=== PATIENT | male | born 1930 | race Caucasian/White ===

== ENCOUNTER 2016-10-29 12:56 | Inpatient (IN) | payer OTHER ==
[~2016-10-29] VITALS: Ht 165.1 cm; Wt 71.3 kg
[~2016-10-29 12:56] MED LIST: ACTIGALL300 MG PO; ASPIR 8181 MG PO; CAR60 PO; CARAFATE1 GM PO; CIPRO500 MG PO; CIPROFLOXACIN500 MG PO; COL250 PO; COR200 PO; COUMADIN3 MG PO; FEROSUL325 MG PO; FLO4 PO; GEMFIBROZIL600 MG PO; GLU500 PO; INDOCIN25 MG PO; INDOMETHACIN50 MG PO; LAC PO; LEVAQUIN500 MG PO; LISINOPRIL2.5 MG PO; LOP600 PO; MAC100 PO; METFORMIN ER500 M1 PO; NITROFURANTOIN100 MG PO; NORCO1 TA2 PO; OMEPRAZOLE40 M1 PO; ONDANSETRON4 M3 PO; POVIDONE IODINE 10% TOP; PRILOSEC40 MG PO; SIMVASTATIN10 M1 PO; TYLENOL325 MG PO; ZOCOR10 MG PO; ZOFRAN ODT4 MG SL
[2016-10-29 14:11] LABS: BASOPHIL % 0.4 % (0-2); PLATELET COUNT 252 x10^3mcL (130-400); RED CELL DISTRIBUTION WIDTH 14.1 % (11.5-14.5)
[2016-10-29 14:21] LABS: CALCIUM 9.2 mg/dL (8.5-10.1); CARBON DIOXIDE 19.9 mmol/L (21-32); CHLORIDE SERUM 105 mmol/L (98-107); CREATININE SERUM 1.2 mg/dL (0.7-1.3); GLUCOSE SERUM 113 mg/dL (74-106); POTASSIUM SERUM 3.8 mmol/L (3.5-5.1); SODIUM SERUM 139 mmol/L (136-145)
[2016-10-29 14:25] LABS: ALBUMIN 3.6 g/dL (3.4-5.0); ALKALINE PHOSPHATASE 148 U/L (46-116); ALT/SGPT 21 U/L (16-63); AST/SGOT 23 U/L (15-37); BILIRUBIN TOTAL 0.83 mg/dL (0.20-1.00)
[2016-10-29 14:26] LABS: TOTAL PROTEIN, SERUM 8.8 g/dL (6.4-8.2)
[2016-10-29] MEDS ORDERED: GLUCOPHAGE XR500 MG PO (16:21)
[2016-10-29] MEDS ORDERED: FERROUS SULFAT325 M2 PO (16:22)
[2016-10-29] MEDS ORDERED: OMEPRAZOLE40 M1 PO (16:22)
[2016-10-29] MEDS ORDERED: GEMFIBROZIL600 MG PO (16:22)
[2016-10-29] MEDS ORDERED: MYCC TOP (16:22)
[2016-10-29] MEDS ORDERED: TAMSULOSIN HYD0.4 M1 PO (16:23)
[2016-10-29 17:13] VITALS: BP 128/62
[2016-10-29 17:18] VITALS: Ht 165.1 cm; Wt 71.3 kg
[2016-10-29 17:37] LABS: UA SPECIFIC GRAVITY 1.015 (1.005-1.035); microscopic required? YES; urine erythrocyte NEGATIVE (NEGATIVE)
[2016-10-29 17:45] LABS: T3 TOTAL 0.96 ng/mL
[2016-10-29 17:47] LABS: FREE T4 1.31 ng/dL (0.76-1.46); FREE THYROXINE INDEX 2.9 ug/dL (1.4-4.5); T4(THYROXINE) 9.5 ug/dL (4.7-13.3)
[2016-10-29 22:00] VITALS: BP 129/47
[2016-10-30 06:41] VITALS: BP 121/55
[2016-10-30 06:57] LABS: BASOPHIL % 0.6 % (0-2); PLATELET COUNT 214 x10^3mcL (130-400); RED CELL DISTRIBUTION WIDTH 13.8 % (11.5-14.5)
[2016-10-30 07:05] LABS: CALCIUM 8.1 mg/dL (8.5-10.1); CARBON DIOXIDE 18.5 mmol/L (21-32); CHLORIDE SERUM 109 mmol/L (98-107); CREATININE SERUM 0.9 mg/dL (0.7-1.3); GLUCOSE SERUM 118 mg/dL (74-106); MAGNESIUM 1.7 mg/dL (1.8-2.4); PHOSPHOROUS 2.9 mg/dL (2.5-4.9); POTASSIUM SERUM 3.5 mmol/L (3.5-5.1); SODIUM SERUM 140 mmol/L (136-145)
[2016-10-30 10:00] VITALS: BP 102/49
[2016-10-30 13:45] VITALS: BP 107/52
[2016-10-30 16:42] LABS: BASOPHIL % 0.5 % (0-2); PLATELET COUNT 209 x10^3mcL (130-400); RED CELL DISTRIBUTION WIDTH 13.6 % (11.5-14.5)
[2016-10-30 16:50] VITALS: BP 128/60
[2016-10-30 21:45] VITALS: BP 121/51
[2016-10-31 05:50] VITALS: BP 120/62
[2016-10-31 06:31] LABS: BASOPHIL % 0.8 % (0-2); PLATELET COUNT 211 x10^3mcL (130-400); RED CELL DISTRIBUTION WIDTH 13.7 % (11.5-14.5)
[2016-10-31 06:57] LABS: CALCIUM 8.4 mg/dL (8.5-10.1); CARBON DIOXIDE 19.2 mmol/L (21-32); CHLORIDE SERUM 110 mmol/L (98-107); CREATININE SERUM 0.9 mg/dL (0.7-1.3); GLUCOSE SERUM 102 mg/dL (74-106); MAGNESIUM 1.9 mg/dL (1.8-2.4); POTASSIUM SERUM 3.7 mmol/L (3.5-5.1); SODIUM SERUM 139 mmol/L (136-145)
[2016-10-31 09:54] VITALS: BP 115/50
[2016-10-31 18:09] VITALS: BP 137/61
[2016-10-31 21:00] VITALS: BP 131/62
[2016-11-01 06:45] LABS: CALCIUM 8.7 mg/dL (8.5-10.1); CARBON DIOXIDE 20.1 mmol/L (21-32); CHLORIDE SERUM 112 mmol/L (98-107); CREATININE SERUM 0.9 mg/dL (0.7-1.3); GLUCOSE SERUM 83 mg/dL (74-106); MAGNESIUM 1.9 mg/dL (1.8-2.4); POTASSIUM SERUM 3.6 mmol/L (3.5-5.1); SODIUM SERUM 145 mmol/L (136-145)
[2016-11-01 06:49] LABS: BASOPHIL % 1.2 % (0-2); PLATELET COUNT 226 x10^3mcL (130-400); RED CELL DISTRIBUTION WIDTH 13.3 % (11.5-14.5)
[2016-11-01 07:17] VITALS: BP 122/55
[2016-11-01 18:27] VITALS: BP 135/63
[2016-11-01 21:12] VITALS: BP 133/68
[2016-11-02 06:11] LABS: BASOPHIL % 0.5 % (0-2); PLATELET COUNT 217 x10^3mcL (130-400); RED CELL DISTRIBUTION WIDTH 13.6 % (11.5-14.5)
[2016-11-02 06:30] LABS: CALCIUM 8.5 mg/dL (8.5-10.1); CARBON DIOXIDE 19.2 mmol/L (21-32); CHLORIDE SERUM 109 mmol/L (98-107); CREATININE SERUM 0.8 mg/dL (0.7-1.3); GLUCOSE SERUM 104 mg/dL (74-106); MAGNESIUM 1.8 mg/dL (1.8-2.4); PHOSPHOROUS 2.8 mg/dL (2.5-4.9); POTASSIUM SERUM 3.5 mmol/L (3.5-5.1); SODIUM SERUM 140 mmol/L (136-145)
[2016-11-02 06:42] VITALS: BP 142/60
[2016-11-02 08:46] VITALS: BP 143/62
[2016-11-02] MEDS ORDERED: LIPI10 PO (11:46)
[2016-11-02] MEDS ORDERED: ECO81 PO (11:46)
[2016-11-02] MEDS ORDERED: PLA75 PO (11:47)
[2016-11-02 13:14] VITALS: BP 119/55
[2016-11-02 13:34] VITALS: BP 143/62
== END 2016-11-02 14:44 | disposition home or self-care (01) | DRG 683 ==
LOC: ED 12:56 → MU 15:35 → DU 15:35 → MU 15:35 → DU 17:00 → MU 10-30 18:13
PROVIDERS: Emergency Medicine; Family Medicine; Internal Medicine Gastroenterology; ADMIT Family Medicine
PROC: 0DB68ZX Excision of Stomach, Via Natural or Artificial Opening Endoscopic, Diagnostic (ICD-10-PCS; principal; 2016-11-01 08:30)
PROC: 0DBK8ZX Excision of Ascending Colon, Via Natural or Artificial Opening Endoscopic, Diagnostic (ICD-10-PCS; 2016-11-01 08:30)
PROC: 0DBN8ZX Excision of Sigmoid Colon, Via Natural or Artificial Opening Endoscopic, Diagnostic (ICD-10-PCS; 2016-11-01 08:30)
DX: N17.0 Acute kidney failure with tubular necrosis (principal); K55.1 Chronic vascular disorders of intestine; K29.00 Acute gastritis without bleeding; K21.9 Gastro-esophageal reflux disease without esophagitis; K57.90 Diverticulosis of intestine, part unspecified, without perforation or abscess without bleeding; K64.8 Other hemorrhoids; K40.20 Bilateral inguinal hernia, without obstruction or gangrene, not specified as recurrent; R73.03 Prediabetes; I73.9 Peripheral vascular disease, unspecified; I10 Essential (primary) hypertension; N40.0 Benign prostatic hyperplasia without lower urinary tract symptoms; M19.90 Unspecified osteoarthritis, unspecified site; D64.9 Anemia, unspecified; Z68.27 Body mass index [BMI] 27.0-27.9, adult; Z79.84 Long term (current) use of oral hypoglycemic drugs; Z87.891 Personal history of nicotine dependence
CPT/HCPCS: 43235; 45378; 83880; 84439; 87046; 87046-59; J1200; J1610; J2250; J2310; J2543; J2765; J3010; J3475; J3490; J7030; J7042; Q0092

== ENCOUNTER 2017-07-09 13:44 | Inpatient (IN) | payer OTHER ==
[~2017-07-09] VITALS: Ht 165.1 cm; Wt 74.9 kg
[~2017-07-09 13:44] MED LIST changes: +ECO81 PO; +FERROUS SULFAT325 M2 PO; +GLUCOPHAGE XR500 MG PO; +LIPI10 PO; +MYCC TOP; +PLA75 PO; +TAMSULOSIN HYD0.4 M1 PO
[2017-07-09 16:10] LABS: CALCIUM 9.3 mg/dL (8.5-10.1); CARBON DIOXIDE 26.6 mmol/L (21-32); CHLORIDE SERUM 106 mmol/L (98-107); CREATININE SERUM 1.7 mg/dL (0.7-1.3); GLUCOSE SERUM 154 mg/dL (74-106); POTASSIUM SERUM 4.3 mmol/L (3.5-5.1); SODIUM SERUM 141 mmol/L (136-145)
[2017-07-09 16:11] LABS: BASOPHIL % 0 % (0-2); PLATELET COUNT 173 x10^3mcL (130-400); RED CELL DISTRIBUTION WIDTH 14.6 % (11.5-14.5)
[2017-07-09 16:16] LABS: ALBUMIN 3.4 g/dL (3.4-5.0); ALKALINE PHOSPHATASE 126 U/L (46-116); ALT/SGPT 20 U/L (16-63); AST/SGOT 19 U/L (15-37); BILIRUBIN TOTAL 0.66 mg/dL (0.20-1.00)
[2017-07-09 17:27] LABS: CHOLESTEROL/HDL RATIO 3.9; MAGNESIUM 1.6 mg/dL (1.8-2.4); PHOSPHOROUS 2.7 mg/dL (2.5-4.9)
[2017-07-09 17:36] LABS: T3 TOTAL 1.12 ng/mL
[2017-07-09 17:38] LABS: FREE T4 1.16 ng/dL (0.76-1.46); FREE THYROXINE INDEX 2.8 ug/dL (1.4-4.5); T4(THYROXINE) 8.2 ug/dL (4.7-13.3)
[2017-07-09] MEDS ORDERED: METFORMIN HCL750 MG (20:02)
[2017-07-09] MEDS ORDERED: NITROGLYCERIN0.4 MG (20:02)
[2017-07-09] MEDS ORDERED: ELIQUIS2.5 MG (20:03)
[2017-07-09 21:00] VITALS: BP 126/69
[2017-07-09 21:06] VITALS: BP 126/69
[2017-07-10] MEDS ORDERED: METOPROLOL SUCC50 M2 PO (07:10)
[2017-07-10] MEDS ORDERED: ATORVASTATIN CA10 M1 PO (07:11)
[2017-07-10 07:27] LABS: BASOPHIL % 0.4 % (0-2); PLATELET COUNT 161 x10^3mcL (130-400); RED CELL DISTRIBUTION WIDTH 14.5 % (11.5-14.5)
[2017-07-10 07:57] LABS: CALCIUM 8.6 mg/dL (8.5-10.1); CARBON DIOXIDE 24.4 mmol/L (21-32); CHLORIDE SERUM 108 mmol/L (98-107); CREATININE SERUM 1.2 mg/dL (0.7-1.3); GLUCOSE SERUM 96 mg/dL (74-106); MAGNESIUM 1.6 mg/dL (1.8-2.4); PHOSPHOROUS 3.6 mg/dL (2.5-4.9); POTASSIUM SERUM 3.5 mmol/L (3.5-5.1); SODIUM SERUM 141 mmol/L (136-145)
[2017-07-10 09:00] VITALS: BP 125/69
[2017-07-10 09:36] LABS: microscopic required? NO
[2017-07-10 10:10] LABS: urine erythrocyte NEGATIVE (NEGATIVE)
[2017-07-10 12:52] VITALS: BP 93/63
[2017-07-10 17:39] VITALS: BP 103/62
[2017-07-10 20:47] VITALS: BP 125/71
[2017-07-11 06:22] VITALS: BP 120/57
[2017-07-11 06:32] LABS: BASOPHIL % 0.4 % (0-2); PLATELET COUNT 159 x10^3mcL (130-400)
[2017-07-11 06:45] LABS: CALCIUM 8.5 mg/dL (8.5-10.1); CARBON DIOXIDE 26.7 mmol/L (21-32); CHLORIDE SERUM 107 mmol/L (98-107); CREATININE SERUM 1.1 mg/dL (0.7-1.3); GLUCOSE SERUM 124 mg/dL (74-106); MAGNESIUM 2.3 mg/dL (1.8-2.4); PHOSPHOROUS 3.5 mg/dL (2.5-4.9); POTASSIUM SERUM 3.9 mmol/L (3.5-5.1); SODIUM SERUM 140 mmol/L (136-145)
[2017-07-11 09:37] VITALS: BP 116/57
[2017-07-11] MEDS ORDERED: AUG500 PO (10:53)
[2017-07-11] MEDS ORDERED: NOVAPLUS F0.05 MG/Ac (10:54)
[2017-07-11] MEDS ORDERED: BD LACTINEX1.4 MG PO (10:54)
[2017-07-11 11:36] VITALS: BP 116/57
[2017-07-11 13:34] VITALS: BP 112/46
== END 2017-07-11 14:26 | disposition home health service (06) | DRG 152 ==
LOC: ED 13:44 → DU 18:09
PROVIDERS: Emergency Medicine; ADMIT Family Medicine
DX: J01.30 Acute sphenoidal sinusitis, unspecified (principal); N17.0 Acute kidney failure with tubular necrosis; E83.42 Hypomagnesemia; E11.51 Type 2 diabetes mellitus with diabetic peripheral angiopathy without gangrene; M50.30 Other cervical disc degeneration, unspecified cervical region; I10 Essential (primary) hypertension; I48.2 Chronic atrial fibrillation; I35.0 Nonrheumatic aortic (valve) stenosis; N40.0 Benign prostatic hyperplasia without lower urinary tract symptoms; D64.9 Anemia, unspecified; Z79.82 Long term (current) use of aspirin; Z79.84 Long term (current) use of oral hypoglycemic drugs; Z87.891 Personal history of nicotine dependence; Z68.27 Body mass index [BMI] 27.0-27.9, adult
CPT/HCPCS: 82962; 83880; 84439; 97110-GP; 97116-GP; 97530-GP; J3475; J7030; J8597; Q0092

== ENCOUNTER 2017-08-09 07:29 | Inpatient (IN) | payer OTHER ==
[~2017-08-09] VITALS: Ht 165.1 cm; Wt 72.7 kg
[~2017-08-09 07:29] MED LIST changes: +ATORVASTATIN CA10 M1 PO; +AUG500 PO; +BD LACTINEX1.4 MG PO; +ELIQUIS2.5 MG; +METFORMIN HCL750 MG; +METOPROLOL SUCC50 M2 PO; +NITROGLYCERIN0.4 MG; +NOVAPLUS F0.05 MG/Ac
[2017-08-09 07:37] VITALS: Ht 165.1 cm; Wt 72.7 kg
[2017-08-09 08:08] LABS: PLATELET COUNT 147 x10^3mcL (130-400); RED CELL DISTRIBUTION WIDTH 14.1 % (11.5-14.5)
[2017-08-09 08:16] LABS: CALCIUM 8.7 mg/dL (8.5-10.1); CARBON DIOXIDE 20.9 mmol/L (21-32); CHLORIDE SERUM 106 mmol/L (98-107); CREATININE SERUM 1.3 mg/dL (0.7-1.3); GLUCOSE SERUM 155 mg/dL (74-106); POTASSIUM SERUM 3.5 mmol/L (3.5-5.1); SODIUM SERUM 139 mmol/L (136-145)
[2017-08-09 09:24] LABS: BAND NEUTROPHIL 4 % (0-10); BASOPHIL 0 % (0-2); MONOCYTE 4 % (0-7); SEGMENTED NEUTROPHILS 88 % (37-75)
[2017-08-09 09:25] LABS: PLATELET MORPHOLOGY PLATELETS DECREASED; rbc morphology (normal/abnorm) ABNORMAL (NORMAL)
[2017-08-09 10:17] LABS: UA SPECIFIC GRAVITY 1.015 (1.005-1.035); microscopic required? YES; urine erythrocyte 2+ (NEGATIVE)
[2017-08-09 14:12] VITALS: BP 147/58
[2017-08-09 16:24] LABS: CHOLESTEROL/HDL RATIO 4.3; MAGNESIUM 1.5 mg/dL (1.8-2.4); PHOSPHOROUS 2.5 mg/dL (2.5-4.9)
[2017-08-09 16:29] LABS: FREE T4 1.3 ng/dL (0.76-1.46); FREE THYROXINE INDEX 2.9 ug/dL (1.4-4.5); T4(THYROXINE) 7.4 ug/dL (4.7-13.3)
[2017-08-09 17:34] VITALS: BP 141/54
[2017-08-09 18:38] LABS: T3 TOTAL 0.8 ng/mL
[2017-08-10] VITALS (13 sets, daily range): BP systolic 82–114; BP diastolic 41–66
[2017-08-10 06:46] LABS: BASOPHIL % 0.1 % (0-2); RED CELL DISTRIBUTION WIDTH 14.2 % (11.5-14.5)
[2017-08-10 07:06] LABS: PLATELET COUNT 105 x10^3mcL (130-400)
[2017-08-10 07:15] LABS: CARBON DIOXIDE 19.9 mmol/L (21-32); CHLORIDE SERUM 112 mmol/L (98-107); CREATININE SERUM 1.3 mg/dL (0.7-1.3); GLUCOSE SERUM 88 mg/dL (74-106); PHOSPHOROUS 3.1 mg/dL (2.5-4.9); POTASSIUM SERUM 3.3 mmol/L (3.5-5.1); SODIUM SERUM 143 mmol/L (136-145)
[2017-08-10 14:14] LABS: IRON 8 ug/dL (65-170); TOTAL IRON BINDING CAPACITY 164 ug/dL (250-450)
[2017-08-10 14:39] LABS: RED BLOOD CELLS 4.32 M/mm3 (4.52-5.90)
[2017-08-11] VITALS (8 sets, daily range): BP systolic 80–124; BP diastolic 42–58
[2017-08-11 07:28] LABS: PLATELET COUNT 64 x10^3mcL (130-400); RED CELL DISTRIBUTION WIDTH 14.8 % (11.5-14.5)
[2017-08-11 08:20] LABS: CALCIUM 7.5 mg/dL (8.5-10.1); CARBON DIOXIDE 16.7 mmol/L (21-32); CHLORIDE SERUM 113 mmol/L (98-107); CREATININE SERUM 1.3 mg/dL (0.7-1.3); GLUCOSE SERUM 130 mg/dL (74-106); MAGNESIUM 1.8 mg/dL (1.8-2.4); PHOSPHOROUS 1.5 mg/dL (2.5-4.9); POTASSIUM SERUM 3.3 mmol/L (3.5-5.1); SODIUM SERUM 142 mmol/L (136-145)
[2017-08-11 17:27] LABS: BAND NEUTROPHIL 35 % (0-10); METAMYELOCTE 2 % (0-2); MONOCYTE 6 % (0-7); PLATELET MORPHOLOGY PLATELETS DECREASED; SEGMENTED NEUTROPHILS 53 % (37-75); rbc morphology (normal/abnorm) NORMAL (NORMAL)
[2017-08-12] VITALS (7 sets, daily range): BP systolic 108–138; BP diastolic 61–87
[2017-08-12 07:25] LABS: PLATELET COUNT 82 x10^3mcL (130-400); RED CELL DISTRIBUTION WIDTH 14.9 % (11.5-14.5)
[2017-08-12 07:34] LABS: CALCIUM 8.2 mg/dL (8.5-10.1); CARBON DIOXIDE 13.3 mmol/L (21-32); CHLORIDE SERUM 114 mmol/L (98-107); CREATININE SERUM 1.2 mg/dL (0.7-1.3); GLUCOSE SERUM 127 mg/dL (74-106); MAGNESIUM 1.7 mg/dL (1.8-2.4); PHOSPHOROUS 1.9 mg/dL (2.5-4.9); POTASSIUM SERUM 3.4 mmol/L (3.5-5.1); SODIUM SERUM 141 mmol/L (136-145)
[2017-08-12 10:49] LABS: BAND NEUTROPHIL 5 % (0-10); BASOPHIL 0 % (0-2); MONOCYTE 2 % (0-7); SEGMENTED NEUTROPHILS 87 % (37-75)
[2017-08-12 10:51] LABS: rbc morphology (normal/abnorm) ABNORMAL (NORMAL)
[2017-08-12 10:52] LABS: PLATELET MORPHOLOGY PLATELETS DECREASED
[2017-08-13 05:08] VITALS: BP 117/55
[2017-08-13 07:51] LABS: BASOPHIL % 0.1 % (0-2)
[2017-08-13 07:53] LABS: PLATELET COUNT 92 x10^3mcL (130-400)
[2017-08-13 07:58] LABS: CALCIUM 8.3 mg/dL (8.5-10.1); CARBON DIOXIDE 18.3 mmol/L (21-32); CHLORIDE SERUM 112 mmol/L (98-107); CREATININE SERUM 1.1 mg/dL (0.7-1.3); GLUCOSE SERUM 144 mg/dL (74-106); MAGNESIUM 1.5 mg/dL (1.8-2.4); PHOSPHOROUS 2.4 mg/dL (2.5-4.9); POTASSIUM SERUM 3.3 mmol/L (3.5-5.1); SODIUM SERUM 141 mmol/L (136-145)
[2017-08-13 10:43] VITALS: BP 122/72
[2017-08-13 18:10] VITALS: BP 143/73
[2017-08-13 21:51] VITALS: BP 107/65
[2017-08-14 06:04] VITALS: BP 95/42
[2017-08-14 07:43] LABS: BASOPHIL % 0 % (0-2); PLATELET COUNT 100 x10^3mcL (130-400); RED CELL DISTRIBUTION WIDTH 14.7 % (11.5-14.5)
[2017-08-14 07:56] LABS: CALCIUM 8.1 mg/dL (8.5-10.1); CARBON DIOXIDE 23.6 mmol/L (21-32); CHLORIDE SERUM 106 mmol/L (98-107); CREATININE SERUM 1.1 mg/dL (0.7-1.3); GLUCOSE SERUM 131 mg/dL (74-106); POTASSIUM SERUM 3.1 mmol/L (3.5-5.1); SODIUM SERUM 140 mmol/L (136-145)
[2017-08-14 12:07] VITALS: BP 129/81
[2017-08-14] MEDS ORDERED: DILTIAZEM30 M1 PO (12:34)
[2017-08-14 13:27] VITALS: BP 129/81
[2017-08-14] MEDS ORDERED: LAC PO (13:35)
[2017-08-14] MEDS ORDERED: NOVAPLUS MEROP500 MG IV (13:35)
[2017-08-14 13:45] VITALS: BP 117/51
[2017-08-14 18:49] VITALS: BP 127/65
== END 2017-08-14 20:02 | DRG 871 ==
LOC: ED 07:29 → DU 10:36
PROVIDERS: Emergency Medicine; Family Medicine; Student in an Organized Health Care Education/Training Program
DX: A41.9 Sepsis, unspecified organism (principal); N17.0 Acute kidney failure with tubular necrosis; N39.0 Urinary tract infection, site not specified; J98.11 Atelectasis; R65.20 Severe sepsis without septic shock; R31.9 Hematuria, unspecified; E87.6 Hypokalemia; I48.91 Unspecified atrial fibrillation; I73.9 Peripheral vascular disease, unspecified; I10 Essential (primary) hypertension; R35.0 Frequency of micturition; R39.11 Hesitancy of micturition; N28.1 Cyst of kidney, acquired; N48.89 Other specified disorders of penis; D50.9 Iron deficiency anemia, unspecified; E83.39 Other disorders of phosphorus metabolism; K21.9 Gastro-esophageal reflux disease without esophagitis; E78.5 Hyperlipidemia, unspecified; Z68.34 Body mass index [BMI] 34.0-34.9, adult
CPT/HCPCS: 83880; 84439; 94150; 97116-GP; 97530-GP; J0696; J1885; J1940; J1956; J2185; J3475; J3480; J7030; J7040; J8597; Q0092

== ENCOUNTER 2018-05-12 12:03 | Inpatient (IN) | payer OTHER ==
[~2018-05-12] VITALS: Ht 165.1 cm; Wt 77.6 kg
[~2018-05-12 12:03] MED LIST changes: +DILTIAZEM30 M1 PO; +NOVAPLUS MEROP500 MG IV
[2018-05-12 12:27] VITALS: Ht 165.1 cm; Wt 77.6 kg
[2018-05-12 13:19] LABS: CALCIUM 9.2 mg/dL (8.5-10.1); CARBON DIOXIDE 22.8 mmol/L (21-32); CHLORIDE SERUM 103 mmol/L (98-107); GLUCOSE SERUM 154 mg/dL (74-106); POTASSIUM SERUM 5.1 mmol/L (3.5-5.1); SODIUM SERUM 137 mmol/L (136-145)
[2018-05-12 13:20] LABS: PLATELET COUNT 245 x10^3mcL (130-400); RED CELL DISTRIBUTION WIDTH 14.4 % (11.5-14.5)
[2018-05-12 13:24] LABS: ALBUMIN 3.5 g/dL (3.4-5.0); ALKALINE PHOSPHATASE 169 U/L (46-116); ALT/SGPT 18 U/L (16-63); AST/SGOT 17 U/L (15-37); BILIRUBIN TOTAL 1.03 mg/dL (0.20-1.00)
[2018-05-12 13:29] LABS: TOTAL PROTEIN, SERUM 8.6 g/dL (6.4-8.2)
[2018-05-12 13:56] LABS: BAND NEUTROPHIL 3 % (0-10); BASOPHIL 0 % (0-2); SEGMENTED NEUTROPHILS 95 % (37-75); rbc morphology (normal/abnorm) ABNORMAL (NORMAL)
[2018-05-12 13:57] LABS: PLATELET MORPHOLOGY PLATELETS DECREASED
[2018-05-12] MEDS ORDERED: METFORMIN HCL750 MG PO (14:50)
[2018-05-12] MEDS ORDERED: BD LACTINEX1.4 MG PO (14:51)
[2018-05-12 14:52] LABS: microscopic required? YES; urine erythrocyte 2+ (NEGATIVE)
[2018-05-12] MEDS ORDERED: OMEPRAZOLE40 M1 PO (14:52)
[2018-05-12] MEDS ORDERED: FLO4 PO (14:52)
[2018-05-12] MEDS ORDERED: TOPROL XL25 MG PO (14:52)
[2018-05-12] MEDS ORDERED: ELIQUIS2.5 MG PO (14:53)
[2018-05-12] MEDS ORDERED: PROSCAR5 MG PO (14:53)
[2018-05-12] MEDS ORDERED: MOBIC15 MG PO (14:53)
[2018-05-12 16:04] LABS: CHOLESTEROL/HDL RATIO 4.8; MAGNESIUM 1.7 mg/dL (1.8-2.4); PHOSPHOROUS 2.7 mg/dL (2.5-4.9)
[2018-05-12 16:11] LABS: FREE T4 1.22 ng/dL (0.76-1.46); FREE THYROXINE INDEX 2.6 ug/dL (1.4-4.5); T3 TOTAL 0.8 ng/mL; T4(THYROXINE) 7.3 ug/dL (4.7-13.3)
[2018-05-12 17:01] VITALS: BP 112/67
[2018-05-12 18:21] VITALS: BP 101/59
[2018-05-12 19:20] VITALS: BP 113/64
[2018-05-12 20:12] VITALS: BP 105/56
[2018-05-13 05:43] LABS: PLATELET COUNT 169 x10^3mcL (130-400)
[2018-05-13 05:51] VITALS: BP 96/49
[2018-05-13 06:04] LABS: CALCIUM 7.4 mg/dL (8.5-10.1); CARBON DIOXIDE 21.5 mmol/L (21-32); CHLORIDE SERUM 110 mmol/L (98-107); CREATININE SERUM 1.2 mg/dL (0.7-1.3); GLUCOSE SERUM 112 mg/dL (74-106); MAGNESIUM 1.8 mg/dL (1.8-2.4); PHOSPHOROUS 2.4 mg/dL (2.5-4.9); POTASSIUM SERUM 4.5 mmol/L (3.5-5.1); SODIUM SERUM 139 mmol/L (136-145)
[2018-05-13 06:58] LABS: BASOPHIL % 0 % (0-2); RED CELL DISTRIBUTION WIDTH 14.9 % (11.5-14.5)
[2018-05-13 09:20] VITALS: BP 99/42
[2018-05-13 09:38] VITALS: BP 101/52
[2018-05-13 12:57] VITALS: BP 101/51
[2018-05-13 17:57] VITALS: BP 96/61
[2018-05-13 20:25] VITALS: BP 116/49
[2018-05-14 05:32] VITALS: BP 119/53
[2018-05-14 06:15] LABS: CALCIUM 7.9 mg/dL (8.5-10.1); CARBON DIOXIDE 20.3 mmol/L (21-32); CHLORIDE SERUM 111 mmol/L (98-107); CREATININE SERUM 1.2 mg/dL (0.7-1.3); GLUCOSE SERUM 110 mg/dL (74-106); MAGNESIUM 1.8 mg/dL (1.8-2.4); PHOSPHOROUS 2.8 mg/dL (2.5-4.9); POTASSIUM SERUM 4.5 mmol/L (3.5-5.1); SODIUM SERUM 140 mmol/L (136-145)
[2018-05-14 06:21] LABS: BASOPHIL % 0.1 % (0-2); PLATELET COUNT 162 x10^3mcL (130-400)
[2018-05-14 06:54] LABS: RED CELL DISTRIBUTION WIDTH 15.8 % (11.5-14.5)
[2018-05-14 08:30] VITALS: BP 134/65
[2018-05-14 12:53] VITALS: BP 119/49
[2018-05-14 17:19] VITALS: BP 121/49
[2018-05-14 21:04] VITALS: BP 126/54
[2018-05-15 05:20] VITALS: BP 128/61
[2018-05-15 06:26] LABS: CALCIUM 8.6 mg/dL (8.5-10.1); CARBON DIOXIDE 19.4 mmol/L (21-32); CHLORIDE SERUM 110 mmol/L (98-107); CREATININE SERUM 1.3 mg/dL (0.7-1.3); GLUCOSE SERUM 113 mg/dL (74-106); SODIUM SERUM 140 mmol/L (136-145)
[2018-05-15 06:27] LABS: BASOPHIL % 0.2 % (0-2); PLATELET COUNT 188 x10^3mcL (130-400)
[2018-05-15 07:09] LABS: RED CELL DISTRIBUTION WIDTH 14.7 % (11.5-14.5)
[2018-05-15 09:12] VITALS: BP 121/51
[2018-05-15 13:19] VITALS: BP 132/58
[2018-05-15] MEDS ORDERED: LEVAQUIN750 MG PO (13:19)
[2018-05-15 13:48] VITALS: BP 132/58
[2018-05-15 15:24] VITALS: BP 135/57
== END 2018-05-15 16:13 | disposition home health service (06) | DRG 871 ==
LOC: ED 12:03 → DU 14:40
PROVIDERS: Emergency Medicine; Internal Medicine
DX: A41.9 Sepsis, unspecified organism (principal); N17.0 Acute kidney failure with tubular necrosis; N39.0 Urinary tract infection, site not specified; R65.20 Severe sepsis without septic shock; I48.91 Unspecified atrial fibrillation; E11.65 Type 2 diabetes mellitus with hyperglycemia; E86.0 Dehydration; E83.42 Hypomagnesemia; I10 Essential (primary) hypertension; K21.9 Gastro-esophageal reflux disease without esophagitis; E78.5 Hyperlipidemia, unspecified; Z68.26 Body mass index [BMI] 26.0-26.9, adult; Z79.01 Long term (current) use of anticoagulants; Z79.84 Long term (current) use of oral hypoglycemic drugs; Z79.82 Long term (current) use of aspirin
CPT/HCPCS: 82962; 83880; 84439; 90658; 94150; 97116-GP; J0696; J0744; J1956; J3490; J7030; J7040; J7620; Q0092

== ENCOUNTER 2018-07-15 13:03 | Inpatient (IN) | payer OTHER ==
[~2018-07-15] VITALS: Ht 157.5 cm; Wt 80.7 kg
[~2018-07-15 13:03] MED LIST changes: +ELIQUIS2.5 MG PO; +LEVAQUIN750 MG PO; +METFORMIN HCL750 MG PO; +MOBIC15 MG PO; +PROSCAR5 MG PO; +TOPROL XL25 MG PO
[2018-07-15 13:16] VITALS: Ht 157.5 cm; Wt 80.7 kg
[2018-07-15 14:44] LABS: BASOPHIL % 0.2 % (0-2); PLATELET COUNT 210 x10^3mcL (130-400)
[2018-07-15 14:52] LABS: CALCIUM 8.1 mg/dL (8.5-10.1); CARBON DIOXIDE 21.3 mmol/L (21-32); CHLORIDE SERUM 108 mmol/L (98-107); CREATININE SERUM 1.4 mg/dL (0.7-1.3); GLUCOSE SERUM 116 mg/dL (74-106); POTASSIUM SERUM 3.8 mmol/L (3.5-5.1); SODIUM SERUM 140 mmol/L (136-145)
[2018-07-15 14:56] LABS: ALKALINE PHOSPHATASE 105 U/L (46-116); ALT/SGPT 15 U/L (16-63); AST/SGOT 17 U/L (15-37); BILIRUBIN TOTAL 0.4 mg/dL (0.20-1.00); TOTAL PROTEIN, SERUM 6.8 g/dL (6.4-8.2)
[2018-07-15] MEDS ORDERED: BD LACTINEX1.4 MG PO (15:24)
[2018-07-15] MEDS ORDERED: TAMSULOSIN HYD0.4 M1 PO (15:24)
[2018-07-15] MEDS ORDERED: METFORMIN HCL750 MG PO (15:24)
[2018-07-15] MEDS ORDERED: FINASTERIDE5 M1 PO (15:24)
[2018-07-15] MEDS ORDERED: ELIQUIS2.5 MG PO (15:25)
[2018-07-15] MEDS ORDERED: MELOXICAM15 M1 PO (15:26)
[2018-07-15] MEDS ORDERED: DILTIAZEM HCL60 M1 PO (15:27)
[2018-07-15 16:08] LABS: MAGNESIUM 1.6 mg/dL (1.8-2.4); PHOSPHOROUS 2.6 mg/dL (2.5-4.9)
[2018-07-15 16:16] LABS: FREE T4 1.13 ng/dL (0.76-1.46); FREE THYROXINE INDEX 2.5 ug/dL (1.4-4.5); T4(THYROXINE) 6.4 ug/dL (4.7-13.3)
[2018-07-15 16:18] LABS: CHOLESTEROL/HDL RATIO 5.8
[2018-07-15 16:22] VITALS: BP 130/81
[2018-07-15 16:50] LABS: T3 TOTAL 0.85 ng/mL
[2018-07-15 17:31] VITALS: BP 137/76
[2018-07-15 18:18] LABS: microscopic required? NO
[2018-07-15 18:25] LABS: urine erythrocyte NEGATIVE (NEGATIVE)
[2018-07-15 20:53] VITALS: BP 111/60
[2018-07-16 05:51] VITALS: BP 124/74
[2018-07-16 07:08] LABS: CALCIUM 8.6 mg/dL (8.5-10.1); CARBON DIOXIDE 22.6 mmol/L (21-32); CHLORIDE SERUM 107 mmol/L (98-107); CREATININE SERUM 1.2 mg/dL (0.7-1.3); GLUCOSE SERUM 90 mg/dL (74-106); MAGNESIUM 1.6 mg/dL (1.8-2.4); PHOSPHOROUS 3.5 mg/dL (2.5-4.9); POTASSIUM SERUM 4.2 mmol/L (3.5-5.1); SODIUM SERUM 139 mmol/L (136-145)
[2018-07-16 07:45] LABS: BASOPHIL % 0.5 % (0-2); PLATELET COUNT 198 x10^3mcL (130-400); RED CELL DISTRIBUTION WIDTH 13.5 % (11.5-14.5)
[2018-07-16 10:10] VITALS: BP 111/44
[2018-07-16 13:12] VITALS: BP 121/74
[2018-07-16 14:26] VITALS: BP 121/74
== END 2018-07-16 16:39 | disposition home or self-care (01) | DRG 73 ==
LOC: ED 13:03 → DU 15:36
PROVIDERS: Emergency Medicine; Family Medicine
DX: G90.8 Other disorders of autonomic nervous system (principal); N17.0 Acute kidney failure with tubular necrosis; K76.89 Other specified diseases of liver; E11.9 Type 2 diabetes mellitus without complications; I48.2 Chronic atrial fibrillation; E83.51 Hypocalcemia; E83.42 Hypomagnesemia; E78.5 Hyperlipidemia, unspecified; Z95.0 Presence of cardiac pacemaker; Z68.32 Body mass index [BMI] 32.0-32.9, adult; Z79.01 Long term (current) use of anticoagulants; Z79.84 Long term (current) use of oral hypoglycemic drugs
CPT/HCPCS: 82962; 83880; 84439; 97110-GP; 97530-GP; J3010; J7030; J7040; Q0092